=== PATIENT | male | born 1980 | race African-American/Black ===

== ENCOUNTER 2017-07-24 21:22 | Observation (INO) | payer OTHER ==
[~2017-07-24] VITALS: Ht 182.9 cm; Wt 100.0 kg
[2017-07-24 21:24] VITALS: BP 145/101; PULSE 88; RESP 18; TEMP 98.1; O2SAT 99
[2017-07-24] MEDS ORDERED: BLOOD PRESSURE (21:24)
[2017-07-24] MEDS ORDERED: TETANUS/DIPHTHERIA TOXOID ADULT 0.5 ML VIAL IM ONE (21:30)
--- NOTE | 2017-07-24 21:35 | PD ---
HPI Chief Complaint: Injury Time Seen by Provider: 21:25 Travel History International Travel<30 days: No Contact w/Intl Traveler<30days: No History of Present Illness HPI 36yo M with PMH of HTN presents to the ED with crush injury of left hand at work today. Pt's left fingers was stuck under a hydralic lift at 8:45pm and was under it for about 10 minutes before rescue arrived and lifted it up. There is indentation through the 2-4 IP from the lift. Denies any focal weakness or numbness. Pt was given morphine 6mg which improved the pain. Denies any other injuries. There is an abrasion on right knee but pt denies any pain there. PFSH Past Medical History Hypertension: Yes Tetanus Vaccination: Unknown Influenza Vaccination: No Past Surgical History Surgical History: No Previous Surgery Social History Alcohol Use: Yes (RARELY) Tobacco Use: Yes Substance Use: No Allergies-Medications (Allergen,Severity, Reaction): Coded Allergies: No Known Allergies (Verified Allergy, Unknown, 07/24/17) Reported Meds & Prescriptions Reported Meds & Active Scripts Active Percocet (Oxycodone-Acetaminophen) 5-325 mg Tab 1 Tab PO Q4H PRN Reported [Blood Pressure] Review of Systems Except as stated in HPI: all other systems reviewed are Neg Physical Exam Narrative GENERAL: 36yo M in mild distress. SKIN: Focused skin assessment warm/dry. HEAD: Atraumatic. Normocephalic. EYES: Pupils equal and round. No scleral icterus. No injection or drainage. ENT: No nasal bleeding or discharge. Mucous membranes pink and moist. NECK: Trachea midline. No JVD. CARDIOVASCULAR: Regular rate and rhythm. No murmur appreciated. RESPIRATORY: No accessory muscle use. Clear to auscultation. Breath sounds equal bilaterally. GASTROINTESTINAL: Abdomen soft, non-tender, nondistended. MUSCULOSKELETAL: Left hand: +Indentation 2-4 IP, ttp. +Skin tears IP 2-4. + Swelling and dry blood base of fifth nail. Radial pulse 2+. Sensation intact. Cap refill <2 sec. FROM in all digits. NEUROLOGICAL: Awake and alert. No obvious cranial nerve deficits. Motor grossly within normal limits. Normal speech. PSYCHIATRIC: Appropriate mood and affect; insight and judgment normal. Data Data Last Documented VS Vital Signs Date Time Temp Pulse Resp B/P (MAP) Pulse Ox O2 Delivery O2 Flow Rate FiO2 6/9/18 00:57 70 18 147/78 (101) 99 Room Air 07/24/17 21:24 98.1 Orders Orders Hand, Limited (2vws) (07/24/17 ) Tetanus/Diphtheria Tox Adult (Tetanus/Di (07/24/17 21:30) Morphine Inj (Morphine Inj) (07/24/17 22:00) Morphine Inj (Morphine Inj) (07/24/17 22:30) Splint Or Brace Apply/Monitor (07/24/17 22:29) Basic Metabolic Panel (Bmp) (07/25/17 00:00) Complete Blood Count With Diff (07/25/17 00:00) Troponin I (07/25/17 00:00) Chest, Single Ap (07/25/17 00:00) Aspirin (Aspirin) (07/25/17 00:00) Nitroglycerin Sl (Nitrostat Sl) (07/25/17 00:00) Finger Splint (07/25/17 ) Finger Splint (07/25/17 ) Ibuprofen (Motrin) (07/25/17 01:30) Admit Order (Ed Use Only) (07/25/17 01:32) Activity Bed Rest With Brp (07/25/17 01:32) Vital Signs (Adult) Q4H (07/25/17 01:32) Cardiac Rhythm .As Directed (07/25/17 01:32) Notify Dr: Other .PRN (07/25/17 01:32) Notify Parameters (07/25/17 01:32) Resp Oxygen Nasal Cannula (07/25/17 ) Ckmb (Isoenzyme) Profile (07/25/17 01:32) Ckmb (Isoenzyme) Profile (07/25/17 04:32) Troponin I (07/25/17 01:32) Troponin I (07/25/17 04:32) Labs Laboratory Tests Test 07/25/17 00:16 White Blood Count 5.2 TH/MM3 Red Blood Count 5.00 MIL/MM3 Hemoglobin 16.1 GM/DL Hematocrit 45.6 % Mean Corpuscular Volume 91.2 FL Mean Corpuscular Hemoglobin 32.2 PG Mean Corpuscular Hemoglobin Concent 35.3 % Red Cell Distribution Width 12.9 % Platelet Count 232 TH/MM3 Mean Platelet Volume 8.4 FL Neutrophils (%) (Auto) 51.0 % Lymphocytes (%) (Auto) 38.5 % Monocytes (%) (Auto) 8.2 % Eosinophils (%) (Auto) 1.3 % Basophils (%) (Auto) 1.0 % Neutrophils # (Auto) 2.7 TH/MM3 Lymphocytes # (Auto) 2.0 TH/MM3 Monocytes # (Auto) 0.4 TH/MM3 Eosinophils # (Auto) 0.1 TH/MM3 Basophils # (Auto) 0.1 TH/MM3 CBC Comment DIFF FINAL Differential Comment Blood Urea Nitrogen 12 MG/DL Creatinine 0.95 MG/DL Random Glucose 99 MG/DL Calcium Level 8.9 MG/DL Sodium Level 138 MEQ/L Potassium Level 4.1 MEQ/L Chloride Level 105 MEQ/L Carbon Dioxide Level 22.8 MEQ/L Anion Gap 10 MEQ/L Estimat Glomerular Filtration Rate 108 ML/MIN Troponin I LESS THAN 0.02 NG/ML MDM Medical Decision Making Medical Screen Exam Complete: Yes Emergency Medical Condition: Yes Interpretation(s) EKG: NSR 68bpm. Normal axis. ST elevation in V2, likely early repolarization. TWI III. No reciprocal changes. No prior EKG to compare. Differential Diagnosis Crush injury left hand vs. fracture Narrative Course 36yo M with PMH of HTN here with crush injury to left hand through the fingers. Xray left hand showed fracturing of the fifth distal phalanx and the fourth middle phalanx. I discussed with hand surgery Dr. Vela and he reviewed the xray and said that pt can be placed in finger splint in fourth and fifth digit, to elevate the arm and follow up with him in his office next week. Said there is not muscle in fingers so less chance of compartment syndrome but pt shoulder return if symptoms worsen. Pt given morphine but still in a lot of pain so given a second dose. When pt was about to be discharge, pt said he started having left sided chest pain that is pressure like. Pain is constant, about a 6 out of 10. Pain is constant and nonradiating. Associated with sob. Said he never really had this before and never had a cardiac work up. Pt does have cardiac risk factors including obesity, cig smoking, HTN. Will obtain labs including cardiac enzymes , CXR and give aspirin, sublingual nitro. Labs reviewed, no leukocytosis. H/H normal. Troponin negative. CXR negative. Pt reevaluated after 1 sublingual nitro and aspirin and chest pain has improved. Requesting ibuprofen or something non narcotic for his hand pain. Pt also with family history of cardiac disease. Given pt's risk factors, will admit him to chest pain center for serial EKG and cardiac enzymes. Diagnosis Primary Impression: Fracture Additional Impressions: Crush injury Chest pain Qualified Codes: R07.9 - Chest pain, unspecified Admitting Information Admitting Physician Requests: Observation Referrals: Tc Vela MD call for appointment Crush injury to left fingers, fracture of distal fifth DIP and fourth IP Patient Instructions: General Instructions Departure Forms: Tests/Procedures Additional Instructions: Please follow up with Dr. Vela next week. Return to the ED if symptoms worsen. Med/Other Pt SpecificInfo: Prescription(s) given Scripts Oxycodone-Acetaminophen (Percocet) 5-325 mg Tab 1 TAB PO Q4H Y for PAIN, #15 TAB 0 Refills Prov: Lexis Capps DO 07/24/17 Lexis Capps DO Jul 24, 2017 21:35
--- NOTE | 2017-07-24 21:55 | RADRPT ---
EXAM DATE: 07/24/2017 9:45 PM EDT AGE/SEX: 36 years / Male INDICATIONS: Pain in distal phalanges after being crushed by a machine at work. CLINICAL DATA: This is the patient's initial encounter. Patient reports that signs and symptoms have been present for 1 day and indicates a pain score of 7/10. MEDICAL/SURGICAL HISTORY: None. None. COMPARISON: No prior exams available for comparison. FINDINGS: There is fracturing at the mid to distal aspect of the fifth distal phalanx and at the mid to distal aspect of the fourth middle phalanx. These are seen on the lateral view. No other fracture is seen. CONCLUSION: Fracturing of the fifth distal phalanx and the fourth middle phalanx. Electronically signed by: Jun King MD 07/24/2017 9:53 PM EDT
[2017-07-24] MEDS ORDERED: MORPHINE SULFATE 8 MG/ML INJ IV PUSH ONE ×2 (22:00→22:30)
[2017-07-24] MEDS ORDERED: PERC5TAB12 PO (23:30)
[2017-07-25] MEDS ORDERED: ASPIRIN 325 MG TAB PO ONE
[2017-07-25] MEDS: NITROGLYCERIN 0.4 MG SL 25 TABS/BTL SL SCH ×3 (00:05→00:15)
--- NOTE | 2017-07-25 00:19 | RADRPT ---
EXAM DATE: 07/25/2017 12:15 AM EDT AGE/SEX: 36 years / Male INDICATIONS: Chest pain. CLINICAL DATA: This is the patient's initial encounter. Patient reports that signs and symptoms have been present for 1 day and indicates a pain score of 6/10. MEDICAL/SURGICAL HISTORY: None. None. COMPARISON: No prior exams available for comparison. FINDINGS: A single AP view of the chest demonstrates the lungs to be symmetrically aerated without evidence of mass, infiltrate or effusion. The cardiomediastinal contours are unremarkable. Osseous structures a re intact. CONCLUSION: No active disease. Electronically signed by: Pipo Fernández MD 07/25/2017 12:18 AM EDT
[2017-07-25 00:30] LABS: AUTOMATED NEUTROPHIL # 2.7 TH/MM3 (1.8-7.7); BASOPHIL # 0.1 TH/MM3 (0-0.2); EOSINOPHIL # 0.1 TH/MM3 (0-0.4); EOSINOPHIL % 1.3 % (0.0-4.0); HEMATOCRIT 45.6 % (39.0-51.0); HEMOGLOBIN 16.1 GM/DL (13.0-17.0); LYMPH % 38.5 % (9.0-44.0); MEAN CELL VOLUME 91.2 FL (80.0-100.0); MEAN CORPUSCULAR HEMOGLOBIN 32.2 PG (27.0-34.0); MEAN CORPUSCULAR HGB CONC 35.3 % (32.0-36.0); MEAN PLATELET VOLUME 8.4 FL (7.0-11.0); MONO % 8.2 % (0.0-8.0); MONOCYTE # 0.4 TH/MM3 (0-0.9); PLATELET COUNT 232 TH/MM3 (150-450); RED CELL DISTRIBUTION WIDTH 12.9 % (11.6-17.2); WHITE BLOOD COUNT 5.2 TH/MM3 (4.0-11.0)
[2017-07-25 00:57] VITALS: BP 147/78; PULSE 70; RESP 18; O2SAT 99
[2017-07-25 01:01] LABS: BICARBONATE 22.8 MEQ/L (21.0-32.0); BLOOD UREA NITROGEN 12 MG/DL (7-18); CALCIUM 8.9 MG/DL (8.5-10.1); CHLORIDE 105 MEQ/L (98-107); CREATININE 0.95 MG/DL (0.60-1.30); GLOMERULAR FILTRATION RATE 108 ML/MIN (>89); GLUCOSE,RANDOM 99 MG/DL (74-106); SODIUM (NA) 138 MEQ/L (136-145)
[2017-07-25 01:17] LABS: TROPONIN I LESS THAN 0.02 NG/ML (0.02-0.05)
[2017-07-25] MEDS ORDERED: IBUPROFEN 600 MG TAB PO ONE (01:30)
[2017-07-25] MEDS ORDERED: SODIUM CHLORIDE 0.9% FLUSH 10 ML FLUSH IV FLUSH PRN (01:45)
[2017-07-25 02:37] VITALS: BP 150/77; PULSE 74; RESP 16; TEMP 97.6; O2SAT 98
[2017-07-25 04:24] LABS: TROPONIN I LESS THAN 0.02 NG/ML (0.02-0.05)
[2017-07-25 06:53] LABS: TROPONIN I LESS THAN 0.02 NG/ML (0.02-0.05)
[2017-07-25 07:39] VITALS: BP 126/90; PULSE 67; RESP 18; TEMP 97.5; O2SAT 98
[2017-07-25 07:55] VITALS: O2SAT 100
[2017-07-25 08:00] VITALS: PULSE 70
[2017-07-25] MEDS ORDERED: SODIUM CHLORIDE 0.9% FLUSH 10 ML FLUSH IV FLUSH SCH (09:00)
--- NOTE | 2017-07-25 09:08 | HHI.HP ---
HPI Primary Care Physician No Primary Care Physician Chief Complaint Left hand pain and chest pain History of Present Illness This is a 36-year-old male with history of hypertension and tobacco abuse that presents to ED with initial complaint of hand injury. States that it was crushed by equipment at work. X-rays were taken and showed fractures on the left hand at the fifth distal phalanx and fourth middle phalanx. Denies numbness in the digits. There is still some pain. Apparently while he is being discharged she developed a left-sided chest pressure rated as a 6-7 out of 10. He was mildly short of breath. Denied nausea or diaphoresis. Symptoms lasted a few hours. Denies having episodes of chest discomfort in the past. Cannot recall prior cardiac workup. Review of Systems General: Patient denies fevers, chills, and recent travel. HEENT: Patient denies headache, sore throat, difficulty swallowing. Cardiovascular: Has the chest discomfort as mentioned above. Denies sensation of heart beating rapidly or irregularly. No syncope. Denies diaphoresis. Respiratory: Initially mildly short of breath. Denies inspirational chest discomfort. Denies coughing wheezing or hemoptysis. GI: Patient denies nausea, vomiting, diarrhea, abdominal pain, bloody stools. Musculoskeletal: Left hand pain more specifically to the left fourth and fifth digits. Denies calf pain or edema. Neurovascular: Patient denies numbness, tingling, weakness in extremities. Denies headache. Endocrine: Denies polyuria and polydipsia. Hematologic: Denies easy bruising. Skin: Denies rash or itching. Past Family Social History Allergies: Coded Allergies: No Known Allergies (Verified Allergy, Unknown, 07/24/17) Past Medical History Hypertension and tobacco abuse. Unknown lipid status. Denies diabetes and CAD. Past Surgical History Denies prior surgeries. Reported Medications Reported Meds & Active Scripts Active Percocet (Oxycodone-Acetaminophen) 5-325 mg Tab 1 Tab PO Q4H PRN Reported [Blood Pressure] Active Ordered Medications Current Medications Medications (Trade) Dose Ordered Sig/Kavita Route Start Time Stop Time Status Last Admin (NS Flush) 2 ml UNSCH PRN IV FLUSH 07/25/17 01:45 (NS Flush) 2 ml BID IV FLUSH 07/25/17 09:00 Family History Denies family history of CAD. Social History Smokes about 1/2 pack of series daily for 10 years. Denies alcohol or illicit drug use. Physical Exam Vital Signs Vital Signs Date Time Temp Pulse Resp B/P (MAP) Pulse Ox O2 Delivery O2 Flow Rate FiO2 07/25/17 07:39 97.5 67 18 126/90 (102) 98 07/25/17 02:37 97.6 74 16 150/77 (101) 98 07/25/17 00:57 70 18 147/78 (101) 99 Room Air 07/24/17 23:35 07/24/17 21:24 98.1 88 18 145/101 (116) 99 Room Air Physical Exam GENERAL: This is a well-nourished, well-developed patient, in no apparent distress. Patient speaks in clear complete sentences. Patient is pleasant. HEENT: Head is atraumatic and normocephalic. Neck is supple without lymphadenopathy and trachea is midline. No JVD or carotid bruits. CARDIOVASCULAR: Regular rate and rhythm without murmurs, gallops, or rubs. RESPIRATORY: Clear to auscultation. Breath sounds equal bilaterally. No wheezes , rales, or rhonchi. Chest wall is nontender. No use of accessory muscles. GASTROINTESTINAL: Abdomen is nontender, nondistended. Abdomen soft. No obvious pulsatile mass or bruit. No CVA tenderness. Strong femoral pulses bilaterally. Normal bowel sounds in all quadrants. MUSCULOSKELETAL: Patient is moving upper and lower extremities freely. Left fourth and fifth digits are in finger splints. Sensation intact distally. Superficial abrasions are noted. There is some soft tissue swelling. No calf tenderness or edema, no Homans sign. Strong pulses in upper and lower extremities. NEUROLOGICAL: Patient is alert and oriented. Cranial nerves 2-12 are grossly intact. No focal deficits and speech is clear. SKIN: No rash and turgor is normal. Laboratory Laboratory Tests Test 07/25/17 00:16 07/25/17 03:15 07/25/17 06:05 White Blood Count 5.2 Red Blood Count 5.00 Hemoglobin 16.1 Hematocrit 45.6 Mean Corpuscular Volume 91.2 Mean Corpuscular Hemoglobin 32.2 Mean Corpuscular Hemoglobin Concent 35.3 Red Cell Distribution Width 12.9 Platelet Count 232 Mean Platelet Volume 8.4 Neutrophils (%) (Auto) 51.0 Lymphocytes (%) (Auto) 38.5 Monocytes (%) (Auto) 8.2 Eosinophils (%) (Auto) 1.3 Basophils (%) (Auto) 1.0 Neutrophils # (Auto) 2.7 Lymphocytes # (Auto) 2.0 Monocytes # (Auto) 0.4 Eosinophils # (Auto) 0.1 Basophils # (Auto) 0.1 CBC Comment DIFF FINAL Differential Comment Blood Urea Nitrogen 12 Creatinine 0.95 Random Glucose 99 Calcium Level 8.9 Sodium Level 138 Potassium Level 4.1 Chloride Level 105 Carbon Dioxide Level 22.8 Anion Gap 10 Estimat Glomerular Filtration Rate 108 Troponin I LESS THAN 0.02 LESS THAN 0.02 LESS THAN 0.02 Total Creatine Kinase 453 505 Creatine Kinase MB 3.8 3.3 Creatine Kinase MB % 0.8 0.7 Result Diagram: 07/25/17 0016 07/25/17 0016 Imaging Last 48 hours Impressions Chest X-Ray 07/25/17 0000 Signed Impressions: CONCLUSION: No active disease. Hand X-Ray 07/24/17 0000 Signed Impressions: CONCLUSION: Fracturing of the fifth distal phalanx and the fourth middle phalanx. Course EKGs are sinus rhythm with pattern of early repolarization. Caprini VTE Risk Assessment Caprini VTE Risk Assessment: No/Low Risk (score <= 1) Caprini Risk Assessment Model Point Value = 1 Point Value = 2 Point Value = 3 Point Value = 5 Age 41-60 Minor surgery BMI > 25 kg/m2 Swollen legs Varicose veins or History of unexplained or recurrent spontaneous Oral contraceptives or hormone replacement Sepsis (< 1 month) Serious lung disease, including pneumonia (< 1 month) Abnormal pulmonary function Acute myocardial infarction Congestive heart failure (< 1 month) History of inflammatory bowel disease Medical patient at bed rest Age 61-74 Arthroscopic surgery Major open surgery (> 45 min) Laparoscopic surgery (> 45 min) Malignancy Confined to bed (> 72 hours) Immobilizing plaster cast Central venous access Age >= 75 History of VTE Family history of VTE Factor V Leiden Prothrombin [id number] Lupus anticoagulant Anticardiolipin antibodies Elevated serum homocysteine Heparin-induced thrombocytopenia Other congenital or acquired thrombophilia Stroke (< 1 month) Elective arthroplasty Hip, pelvis, or leg fracture Acute spinal cord injury (< 1 month) Prophylaxis Regimen Total Risk Factor Score Risk Level Prophylaxis Regimen 0-1 Low Early ambulation 2 Moderate Order ONE of the following: *Sequential Compression Device (SCD) *Heparin 5000 units SQ BID 3-4 Higher Order ONE of the following medications: *Heparin 5000 units SQ TID *Enoxaparin/Lovenox 40 mg SQ daily (WT < 150 kg, CrCl > 30 mL/min) *Enoxaparin/Lovenox 30 mg SQ daily (WT < 150 kg, CrCl > 10-29 mL/min) *Enoxaparin/Lovenox 30 mg SQ BID (WT < 150 kg, CrCl > 30 mL/min) AND/OR *Sequential Compression Device (SCD) 5 or more Highest Order ONE of the following medications: *Heparin 5000 units SQ TID (Preferred with Epidurals) *Enoxaparin/Lovenox 40 mg SQ daily (WT < 150 kg, CrCl > 30 mL/min) *Enoxaparin/Lovenox 30 mg SQ daily (WT < 150 kg, CrCl > 10-29 mL/min) *Enoxaparin/Lovenox 30 mg SQ BID (WT < 150 kg, CrCl > 30 mL/min) AND *Sequential Compression Device (SCD) Assessment and Plan Assessment and Plan * Chest pain: Had serial cardiac enzymes and EKGs for ruling out purposes. He will have a Catracho protocol ETT. Patient be seen by Dr. Degroot of cardiology and the chest pain center. Patient will be discharged home if stress test is nonischemic with instructions to follow-up with PCP. * Left hand fracture: Has fractures of the left fourth middle phalanx and fifth distal phalanx. ED has placed a splint. ED has given referral to hand surgeon. Ice and elevation. * Tobacco abuse: Patient counseled on importance of smoking cessation. Patient is stable at this time. He is agreeable to this plan. Herson Jiménez Jul 25, 2017 09:08
--- NOTE | 2017-07-25 09:58 | PD.CARD.PN ---
Subjective Subjective Remarks 36-year-old gentleman was brought into the emergency room with a crush injury of his left hand. During evaluation he complained of some discomfort in his chest which he now tells me was primarily feeling his heart skips beats. He is having no significant discomfort currently and has already been evaluated extensively by chest pain protocol and undergone a an exercise stress test which was negative. Patient was discussed with the physician riding instructor and I am in agreement with course and plan as documented. Objective Medications Current Medications Medications (Trade) Dose Ordered Sig/Kavita Route Start Time Stop Time Status Last Admin (NS Flush) 2 ml UNSCH PRN IV FLUSH 07/25/17 01:45 (NS Flush) 2 ml BID IV FLUSH 07/25/17 09:00 Vital Signs / I&O Vital Signs Date Time Temp Pulse Resp B/P (MAP) Pulse Ox O2 Delivery O2 Flow Rate FiO2 07/25/17 08:00 70 07/25/17 07:55 100 21 07/25/17 07:39 97.5 67 18 126/90 (102) 98 07/25/17 02:37 97.6 74 16 150/77 (101) 98 07/25/17 00:57 70 18 147/78 (101) 99 Room Air 07/24/17 23:35 07/24/17 21:24 98.1 88 18 145/101 (116) 99 Room Air I/O 07/24/17 07/24/17 07/24/17 07/25/17 07/25/17 07/25/17 07:00 15:00 23:00 07:00 15:00 23:00 Intake Total 200 ml Output Total 250 ml Balance 200 ml -250 ml Intake Oral 200 ml Output Urine Total 250 ml Physical Exam Hand is dressed as documented Head eyes ears nose and throat unremarkable Neck supple no JVD masses nodes or bruits Chest clear to auscultation Cardiovascular regular sinus rhythm with no gallop rub or murmur Skin extensive tattooing otherwise unremarkable Laboratory Laboratory Tests Test 07/25/17 00:16 07/25/17 03:15 07/25/17 06:05 White Blood Count 5.2 TH/MM3 Red Blood Count 5.00 MIL/MM3 Hemoglobin 16.1 GM/DL Hematocrit 45.6 % Mean Corpuscular Volume 91.2 FL Mean Corpuscular Hemoglobin 32.2 PG Mean Corpuscular Hemoglobin Concent 35.3 % Red Cell Distribution Width 12.9 % Platelet Count 232 TH/MM3 Mean Platelet Volume 8.4 FL Neutrophils (%) (Auto) 51.0 % Lymphocytes (%) (Auto) 38.5 % Monocytes (%) (Auto) 8.2 % Eosinophils (%) (Auto) 1.3 % Basophils (%) (Auto) 1.0 % Neutrophils # (Auto) 2.7 TH/MM3 Lymphocytes # (Auto) 2.0 TH/MM3 Monocytes # (Auto) 0.4 TH/MM3 Eosinophils # (Auto) 0.1 TH/MM3 Basophils # (Auto) 0.1 TH/MM3 CBC Comment DIFF FINAL Differential Comment Blood Urea Nitrogen 12 MG/DL Creatinine 0.95 MG/DL Random Glucose 99 MG/DL Calcium Level 8.9 MG/DL Sodium Level 138 MEQ/L Potassium Level 4.1 MEQ/L Chloride Level 105 MEQ/L Carbon Dioxide Level 22.8 MEQ/L Anion Gap 10 MEQ/L Estimat Glomerular Filtration Rate 108 ML/MIN Troponin I LESS THAN 0.02 NG/ML LESS THAN 0.02 NG/ML LESS THAN 0.02 NG/ML Total Creatine Kinase 453 U/L 505 U/L Creatine Kinase MB 3.8 NG/ML 3.3 NG/ML Creatine Kinase MB % 0.8 % 0.7 % Imaging Last 24 hours Impressions Chest X-Ray 07/25/17 0000 Signed Impressions: CONCLUSION: No active disease. Assessment and Plan Assessment and Plan Patient is ruled out using for chest pain center protocol and will be discharged to further follow-up as instructed by the emergency room for his orthopedic injury Discussed Condition With Discussed the evaluation with the patient gave him reassurance regarding his heart and encouraged him to follow-up as directed Yoan Martinez MD Jul 25, 2017 09:58
--- NOTE | 2017-07-25 10:37 | HHI.DCPOC ---
Discharge Care Plan Diagnosis: (1) Chest pain (2) Fingers fractured (3) Hypertension (4) Tobacco abuse Goals to Promote Your Health Do not drive or use heavy machinery while taking pain medication. DO NOT USE LEFT HAND UNTIL CLEARED BY HAND OR ORTHOPEDIC PHYSICIAN. * To prevent worsening of your condition and complications * To maintain your health at the optimal level Directions to Meet Your Goals Take your medications as prescribed Follow your dietary instruction Follow activity as directed Keep your appointments as scheduled Take your immunizations and boosters as scheduled If your symptoms worsen call your PCP, if no PCP go to Urgent Care Center or Emergency Room Smoking is Dangerous to Your Health. Avoid second hand smoke Call the 24-hour hour crisis hotline for domestic abuse at Herson Jiménez Jul 25, 2017 10:37
--- NOTE | 2017-07-25 12:21 | EKG ---
Date Performed: 07/25/2017 Time Performed: 05:49:11 PTAGE: 36 years EKG: Sinus rhythm ABNORMAL QRS-T ANGLE ABNORMAL ECG No significant change PREVIOUS TRACING : 07/25/2017 03.33 DOCTOR: Yoan Martinez Interpretating Date/Time 07/25/2017 12:19:57
--- NOTE | 2017-07-25 12:21 | EKG ---
Date Performed: 07/25/2017 Time Performed: 03:33:03 PTAGE: 36 years EKG: Sinus rhythm EARLY REPOLARIZATION ABNORMAL QRS-T ANGLE ABNORMAL ECG No significant change PREVIOUS TRACING : 07/24/2017 23.52 DOCTOR: Yoan Martinez Interpretating Date/Time 07/25/2017 12:20:29
--- NOTE | 2017-07-25 12:22 | EKG ---
Date Performed: 07/24/2017 Time Performed: 23:52:18 PTAGE: 36 years EKG: Sinus rhythm ST ELEVATION, PROBABLY EARLY REPOLARIZATION BORDERLINE ECG NO PREVIOUS TRACING DOCTOR: Yoan Martinez Interpretating Date/Time 07/25/2017 12:21:10
--- NOTE | 2017-07-25 12:25 | TR ---
Date Performed: 07/25/2017 Time Performed: 09:20:08 DOCTOR: Yoan Martinez DRUG LIST: CLINICAL HISTORY: REASON FOR TEST: Chest pain REASON FOR ENDING: OBSERVATION: CONCLUSION: DAVID PROTOCOL. NO CP. TEST STOPPED AFTER REACHING GOAL HR SECONDARY TO LEG FATIGUE AND MILD SOB.Maximum IH=222 % Max HR Achieved=87.0% Maximum ML=029/104 Total Exercise Time=10:00 COMMENTS: Low probability of ischemic heart disease
== END 2017-07-25 11:34 | disposition home or self-care (01) ==
LOC: NEPC 21:22 → NEDA 07-25 01:33 → NEPGCP 07-25 02:24
PROVIDERS: ADMIT Internal Medicine Cardiovascular Disease; ATTEND Internal Medicine Cardiovascular Disease
DX: R07.89 Other chest pain (principal); I10 Essential (primary) hypertension; R06.02 Shortness of breath; S62.637A Displaced fracture of distal phalanx of left little finger, initial encounter for closed fracture; S62.625A Displaced fracture of middle phalanx of left ring finger, initial encounter for closed fracture; S67.22XA Crushing injury of left hand, initial encounter; R94.31 Abnormal electrocardiogram [ECG] [EKG]; S80.211A Abrasion, right knee, initial encounter; E66.9 Obesity, unspecified; F17.210 Nicotine dependence, cigarettes, uncomplicated; W23.0XXA Caught, crushed, jammed, or pinched between moving objects, initial encounter; Z23 Encounter for immunization
CPT/HCPCS: 71045; 73120; 80048; 82550; 82552; 84484; 85025; 90471; 90714; 93005; 93017; 96374; 96376; 99285; G0378; J2270